=== PATIENT | female | born 1975 | race Caucasian/White ===

== ENCOUNTER → 2018-09-11 | Outpatient (CLI) | payer BC ==
[~2018-09-11] MED LIST: Jolessa1 EACH; LEVSOD100; MULVITMIND PO; MULVITMINE PO
== END ==
LOC: LAB 07:42 → LAB SHORT 07:42 → PLD 07:42
DX: N92.0 Excessive and frequent menstruation with regular cycle (principal)
CPT/HCPCS: 88305

== ENCOUNTER 2018-11-15 10:55 | Day surgery (SDC) | payer BC ==
[~2018-11-15] VITALS: Ht 162.6 cm; Wt 67.1 kg
[2018-11-15] MEDS ORDERED: SETLAKIN 0.151 EACH PO (11:47)
--- NOTE | 2018-11-15 12:30 | NUR ---
11/15/18 1230 Catherine Hawthorne [facility]
--- NOTE | 2018-11-15 13:20 | NUR ---
11/15/18 1320 Lois Suero ([facility] FLUIDS D/C WITH 400ML REMAINING.
== END 2018-11-15 13:30 | disposition home or self-care (01) ==
LOC: ORSCSDS 10:55
PROVIDERS: Obstetrics & Gynecology
PROC: 0U5B8ZZ Destruction of Endometrium, Via Natural or Artificial Opening Endoscopic (ICD-10-PCS; principal; 2018-11-15 12:00)
DX: N92.0 Excessive and frequent menstruation with regular cycle (principal); E03.9 Hypothyroidism, unspecified; Z79.899 Other long term (current) drug therapy
CPT/HCPCS: J1885; J2250; J2405; J3010

== ENCOUNTER 2021-12-24 22:13 | Observation (INO) | payer OTHER ==
[~2021-12-24] VITALS: Ht 162.6 cm; Wt 72.6 kg
[~2021-12-24 22:13] MED LIST changes: +SETLAKIN 0.151 EACH PO
[2021-12-24] MEDS ORDERED: ALPR.25 PO (23:20)
[2021-12-24] MEDS ORDERED: CITALOPRAM HBR20 M6 PO (23:21)
[2021-12-25 00:38] LABS: BASOPHILS ABSOLUTE AUTO 0.04 K/mm3 (0.00-0.23); BASOPHILS PERCENT AUTO 1 % (0-2); EOSINOPHILS ABSOLUTE AUTO 0.54 K/mm3 (0.00-0.68); EOSINOPHILS PERCENT AUTO 9 % (0-6); Hematocrit 39.3 % (33.0-51.0); Hemoglobin 13.6 g/dL (11.5-16.0); IMMATURE GRAN ABSOLUTE AUTO 0.02 K/mm3 (0.00-0.10); IMMATURE GRAN PERCENT AUTO 0 % (0-1); LYMPHOCYTES ABSOLUTE AUTO 2.41 K/mm3 (0.84-5.20); LYMPHOCYTES PERCENT AUTO 38 % (21-46); MONOCYTES ABSOLUTE AUTO 0.43 K/mm3 (0.16-1.47); MONOCYTES PERCENT AUTO 7 % (4-13); Mean Corpuscular HGB 33.7 pg (26.0-34.0); Mean Corpuscular HGB Conc 34.6 g/dL (31.5-36.5); Mean Corpuscular Volume 97 fL (80-100); Mean Platelet Volume 9.7 fL (9.1-12.4); NEUTROPHILS ABSOLUTE AUTO 2.92 K/mm3 (1.96-9.15); NEUTROPHILS PERCENT AUTO 46 % (41-73); Platelet Count 263 K/mm3 (150-400); RDW Coefficient Variation 12.1 % (11.7-14.2); RDW Standard Deviation 43.5 fL (35.1-46.3); Red Blood Cell Count 4.04 M/mm3 (3.80-5.20); White Blood Cell Count 6.36 K/mm3 (4.00-11.30)
[2021-12-25 01:01] LABS: Alanine Aminotransfer (ALT/SGP 34 U/L (12-78); Albumin, Blood 3.5 g/dL (3.4-5.0); Albumin/Globulin Ratio 1.2 (0.8-1.8); Alk Phos 87 U/L (50-136); Anion Gap 8 mmol/L (6-16); Aspartate Aminotrans (AST/SGOT 18 U/L (12-37); Bilirubin, Total 0.2 mg/dL (0.1-1.0); Blood Urea Nitrogen 9 mg/dL (8-24); Bun/Creatinine Ratio 19.7 (12.0-20.0); CO2, Blood 24 mmol/L (21-32); Calcium, Blood 8.1 mg/dL (8.5-10.1); Chloride, Blood 109 mmol/L (98-108); Creatinine, Blood 0.46 mg/dL (0.40-1.00); Ethanol (Alcohol), Blood, Med 140 mg/dL; Free Thyroxine 1.09 ng/dL (0.70-1.60); Glomerular Filtration Rate >60 (60-); Glucose, Blood 106 mg/dL (70-99); Potassium, Blood 3.5 mmol/L (3.5-5.5); Salicylate 2.2 mg/dL (2.8-20.0); Sodium, Blood 141 mmol/L (136-145); Thyroid Stimulating Hormone 0.819 uIU/mL (0.360-4.800); Total Protein, Blood 6.5 g/dL (6.4-8.2)
[2021-12-25 01:15] LABS: Acetaminophen, Random <2.0 ug/mL (10.0-30.0)
[2021-12-25 06:21] LABS: U Amphetamine Screen DETECTED; U Barbituate Screen Not Detected; U Benzodiazapine Screen DETECTED; U Buprenorphine Screen Not Detected; U Cannabinoids Screen Not Detected; U Cocaine Screen Not Detected; U Methadone Screen Not Detected; U Methamphetamine Screen Not Detected; U Opiates Screen Not Detected; U Oxycodone Screen Not Detected; U Phencyclidine Screen Not Detected; U Propoxyphene Screen Not Detected
[2021-12-25 07:43] LABS: Influenza A, PCR NEGATIVE (NEGATIVE); Influenza B, PCR NEGATIVE (NEGATIVE); Resp Syncytial Virus, PCR NEGATIVE (NEGATIVE); SARS-Cov-2 (COVID-19) PCR, MMC NEGATIVE (NEGATIVE)
== END 2021-12-25 12:03 | disposition home or self-care (01) ==
LOC: ER 22:13 → EOR 22:14
PROVIDERS: ADMIT Student in an Organized Health Care Education/Training Program
DX: T42.4X2A Poisoning by benzodiazepines, intentional self-harm, initial encounter (principal); R40.0 Somnolence; F32.A Depression, unspecified; F43.25 Adjustment disorder with mixed disturbance of emotions and conduct; F17.210 Nicotine dependence, cigarettes, uncomplicated; Z20.822 Contact with and (suspected) exposure to COVID-19; F10.10 Alcohol abuse, uncomplicated; Y90.6 Blood alcohol level of 120-199 mg/100 ml
CPT/HCPCS: 0241U; 36415; 80053; 81025; 84439; 84443; 85025; 93005; 93010; G0378; G0480